=== PATIENT | female | born 1970 | race Hispanic/Latino ===

== ENCOUNTER 2016-08-19 08:42 | Emergency (ER) | payer OTHER ==
[~2016-08-19] VITALS: Ht 160 cm; Wt 113.4 kg
[2016-08-19 08:46] VITALS: BP 113/80
--- NOTE | 2016-08-19 08:55 | ED NECK/BACK PAIN COMPLAINT ---
History of Present Illness General Chief Complaint: Low Back Pain/Injury Stated Complaint: LBP Source: patient Exam Limitations: no limitations Allergies Coded Allergies: Penicillins (HIVES 08/19/16) Triage Note: PT TO ED C/O LOW BACK PAIN SINCE FRIDAY. PT STATES SHE SLIPPED ON ICE AND MAYBE TWISTED LOW BACK. DENIES FALLING. TOOK MOTRIN AND A MUSCLE RELAXER WITH NO RELIEF. Triage Nurses Notes Reviewed? yes HPI: This patient is a 46-year-old female who presented to the emergency department today for evaluation of left lower back pain. The patient reported that on Friday she slipped on some ice and twisted her back. She denied falling, head strike, or hitting her back on the ground. She reported that she took Advil, Tylenol, and a friend's meloxicam without any relief of her symptoms. She reported that she did feel," some pain," on Friday, but the pain increased yesterday and today. The pain gets up to a 10 out of 10 is located primarily in her left lower back, left of midline. She reported that occasionally when she is walking her left leg feels like is going to give out underneath her and the pain shoots down her leg. The patient reported the pain has been constant since onset and worsening ambulation and certain movements. No numbness or tingling in the extremities. No bowel or bladder incontinence. No saddle paresthesia. The patient denied any abdominal pain, groin pain, urinary urgency, frequency, blood in the urine, or burning with urination, nausea, vomiting, fevers, or chills. (ARY THEODORE,ABISAI) Vital Signs & Intake/Output Vital Signs & Intake/Output ED Intake and Output 08/20 0000 08/19 1200 Intake Total 50 Output Total Balance 50 Intake, Oral 50 Patient 250 lb Weight Reconcile Medications Ciprofloxacin HCl (Cipro) 500 MG TABLET 1 TAB PO BID UTI/PYELONEPHRITIS Cyclobenzaprine HCl 5 MG TABLET 1 TAB PO TIDPRN PRN MUSCLE SPASMS Naproxen (Naprosyn) 500 MG TABLET 1 TAB PO BID PRN PAIN AND INFLAMMATION Tramadol HCl 50 MG TABLET 1 TAB PO BIDP PRN PAIN (JEIMY VALENZUELA DO) Past History Travel History Traveled to [place] past 21 day No Medical History Any Pertinent Medical History? see below for history Surgical History Surgical History: non-contributory Psychosocial History What is your primary language Latvian Tobacco Use: Quit >30 days ago ETOH Use: denies use Illicit Drug Use: denies illicit drug use Family History Hx Contributory? No (ABISAI MCALLISTER PA-C) Review of Systems Review of Systems Constitutional: Reports: no symptoms. Eyes: Reports: no symptoms. Ears, Nose, Throat, Mouth: Reports: no symptoms. Respiratory: Reports: no symptoms. Cardiovascular: Reports: no symptoms. Gastrointestinal/Abdominal: Reports: no symptoms. Musculoskeletal: Reports: see HPI. Skin: Reports: no symptoms. Neurological/Psychological: Reports: no symptoms. All Other Systems: Reviewed and Negative (ABISAI MCALLISTER PA-C) Physical Exam Physical Exam Neck: normal inspection, supple, full range of motion, normal alignment Comments: Well-developed well-nourished person in no acute distress HEENT: Normal EENT exam, head normocephalic Back: Normal inspection. Antalgic gait. No CVA tenderness. Left-sided lumbar paraspinal musculature tenderness to palpation with muscular spasm noted. Positive straight-leg raise on the left at 45. No midline tenderness Respiratory: No respiratory distress. Speaking in full sentences Abdomen: Soft, nontender and nondistended Extremity: Normal and equal pulses. Neuro: Alert oriented x3, cranial nerves II through XII grossly intact. 5 out of 5 muscular strength in bilateral lower extremities. Skin: No appreciable rash on exposed skin, skin is warm and dry. Psych: Mood and affect is normal (ABISAI MCALLISTER PA-C) Progress Differential Diagnosis: cauda equina syn, herniated disc, myofascial strain, pyelo/UTI, sciatica, spinal cord inj, thoracic outlet syn, T/L spine injury, ureterolithiasis Plan of Care: Orders Procedure Date/time Status URINALYSIS 08/19 915 Complete URINE 08/19 909 Complete Laboratory Tests 08/19/16924: Urine Test NEGATIVE 08/19/16924: Urinalysis LIGHT H, Urine Color YEL, Urine Clarity HAZY H, Urine pH 6.0, Ur Specific Maiden >= 1.030, Urine Protein NEG, Urine Ketones NEG, Urine Nitrite NEG, Urine Bilirubin NEG, Urine Urobilinogen 0.2, Ur Leukocyte Esterase MOD H, Ur Microscopic SEDIMENT EXAMINED, Urine RBC 1-3, Urine WBC 50-75 H, Ur Epithelial Cells MANY H, Urine Mucus MOD H, Urine Hemoglobin SMALL H, Urine Glucose NEG Diagnostic Imaging: Viewed by Me: CT Scan. Discussed w/RAD: CT Scan. Radiology Impression: PATIENT: BRYSON ROBERTS PRESENT AGE: 46 PATIENT ACCOUNT NO: [id number] : 68 LOCATION: [facility] ORDERING PHYSICIAN: ABISAI MCALLISTER PA-C SERVICE DATE: 08/19/16 EXAM TYPE: CAT - CT LUMB SPINE WO IV CONTRAST EXAMINATION: CT LUMBAR SPINE WITHOUT CONTRAST CLINICAL INFORMATION: Pain. Assess for disc bulge. COMPARISON: None. TECHNIQUE: Helical non-contrast CT images were obtained through the lumbar spine and 1.25 and 2.5 mm axial reconstructions were reviewed along with sagittal and coronal MPRs. DLP: 1248.83 mGy-cm FINDINGS: There is hyperlordosis in the lumbar region. On the fire boat engineer image there is loss of vertebral body height anteriorly of T11 and T12 with anterior sclerosis and osteophytosis, consistent with chronic changes. There is mild narrowing of intervertebral disc height at L1-L2. Vertebral body heights are maintained and there are no compression fractures in the lumbar region. Bone mineralization appears normal. The retroperitoneal and visualized pelvic structures are unremarkable. There are mild degenerative changes of the bilateral sacroiliac joints. SPINAL LEVELS: T12-L1: The disc configuration is normal. The central canal and neural foramina are widely patent. The facet joints are normal. L1-L2: The disc configuration is normal. The central canal and neural foramina are widely patent. The facet joints are normal. L2-L3: The disc configuration is normal. The central canal and neural foramina are widely patent. The facet joints are normal. L3-L4: The disc configuration is normal. The central canal and neural foramina are widely patent. The facet joints are normal. L4-L5: There is moderate left and mild right facet arthropathy. There is a diffuse disc bulge extending into the inferior neural foramina bilaterally without definite foraminal nerve root impingement. There is no central stenosis. L5-S1: There is a left-sided paracentral disc protrusion, with mild impingement on the traversing left S1 nerve root. There is no significant central stenosis. The facet joints appear normal. The neural foramina are patent. IMPRESSION: 1. There are no acute fractures or subluxations. 2. There is hyperlordosis in the lumbar region which is nonspecific. 3. There appear to be chronic posttraumatic changes at T11-T12. 4. There is a left paracentral disc protrusion at L5-S1. There appears to be impingement on the traversing left S1 nerve root. DICTATED BY: KAYLEIGH RAYMUNDO MD DATE/TIME DICTATED:08/19/161008 RUSH SEATER:ANABEL DATE/TIME TRANSCRIBED:08/19/161008 CONFIDENTIAL, DO NOT COPY WITHOUT APPROPRIATE AUTHORIZATION. <Electronically signed in Other Vendor System> SIGNED BY: KAYLEIGH RAYMUNDO MD 08/19/16 1037 (ABISAI MCALLISTER PA-C) Departure Departure Disposition: HOME OR SELF CARE Condition: Stable Clinical Impression Primary Impression: Urinary tract infection Qualifiers: Urinary tract infection type: site unspecified Hematuria presence: without hematuria Qualified Code: N39.0 - Urinary tract infection, site not specified Secondary Impressions: Bulging disc Referrals: CATHERINE JACKSON,DAVY De La Vega Additional Instructions: Please take antibiotic as prescribed and forceful duration; please take this medication with food. Take Flexeril as prescribed for muscle relaxation. Take naproxen as prescribed for inflammation. Please take tramadol as prescribed for breakthrough pain. Call the orthopedic physician whose information has been provided to you in this packet for further evaluation as you may need an MRI of your lower back. Rest. Gentle stretching. You may apply ice or heat the affected area as needed. Please return to the emergency Department for any worsening symptoms or concerns. Departure Forms: Customer Survey General Discharge Information Prescriptions: Current Visit Scripts Ciprofloxacin HCl (Cipro) 1 TAB PO BID #14 TAB Cyclobenzaprine HCl 1 TAB PO TIDPRN PRN MUSCLE SPASMS #12 TAB Naproxen (Naprosyn) 1 TAB PO BID PRN PAIN AND INFLAMMATION #20 TAB Tramadol HCl 1 TAB PO BIDP PRN PAIN #10 TAB (ABISAI MCALLISTER PA-C) PA/MACHINE PRECISION ENGRAVER Co-Sign Statement Statement: ED Attending supervision documentation- [] I saw and evaluated the patient. I have also reviewed all the pertinent lab results and diagnostic results. I agree with the findings and the plan of care as documented in the PA's/MACHINE PRECISION ENGRAVER's documentation. [x] I have reviewed the ED Record and agree with the PA's/MACHINE PRECISION ENGRAVER's documentation. [] Additions or exceptions (if any) to the PAs/MACHINE PRECISION ENGRAVER's note and plan are summarized below: [] (JEIMY VALENZUELA DO)
--- NOTE | 2016-08-19 10:37 | CT SCAN REPORT ---
EXAMINATION: CT LUMBAR SPINE WITHOUT CONTRAST CLINICAL INFORMATION: Pain. Assess for disc bulge. COMPARISON: None. TECHNIQUE: Helical non-contrast CT images were obtained through the lumbar spine and 1.25 and 2.5 mm axial reconstructions were reviewed along with sagittal and coronal MPRs. DLP: 1248.83 mGy-cm FINDINGS: There is hyperlordosis in the lumbar region. On the utilization review specialist image there is loss of vertebral body height anteriorly of T11 and T12 with anterior sclerosis and osteophytosis, consistent with chronic changes. There is mild narrowing of intervertebral disc height at L1-L2. Vertebral body heights are maintained and there are no compression fractures in the lumbar region. Bone mineralization appears normal. The retroperitoneal and visualized pelvic structures are unremarkable. There are mild degenerative changes of the bilateral sacroiliac joints. SPINAL LEVELS: T12-L1: The disc configuration is normal. The central canal and neural foramina are widely patent. The facet joints are normal. L1-L2: The disc configuration is normal. The central canal and neural foramina are widely patent. The facet joints are normal. L2-L3: The disc configuration is normal. The central canal and neural foramina are widely patent. The facet joints are normal. L3-L4: The disc configuration is normal. The central canal and neural foramina are widely patent. The facet joints are normal. L4-L5: There is moderate left and mild right facet arthropathy. There is a diffuse disc bulge extending into the inferior neural foramina bilaterally without definite foraminal nerve root impingement. There is no central stenosis. L5-S1: There is a left-sided paracentral disc protrusion, with mild impingement on the traversing left S1 nerve root. There is no significant central stenosis. The facet joints appear normal. The neural foramina are patent. IMPRESSION: 1. There are no acute fractures or subluxations. 2. There is hyperlordosis in the lumbar region which is nonspecific. 3. There appear to be chronic posttraumatic changes at T11-T12. 4. There is a left paracentral disc protrusion at L5-S1. There appears to be impingement on the traversing left S1 nerve root.
[2016-08-19] MEDS ORDERED: CYCLOBENZAPRINE5 M2 PO (10:47)
[2016-08-19] MEDS ORDERED: NAPROSYN500 M1 PO (10:47)
[2016-08-19] MEDS ORDERED: TRAMADOL HCL50 M1 PO (10:47)
[2016-08-19] MEDS ORDERED: CIPRO500 M1 PO (10:47)
== END 2016-08-19 11:27 ==
LOC: ERH
DX: N39.0 Urinary tract infection, site not specified (principal); M51.27 Other intervertebral disc displacement, lumbosacral region
CPT/HCPCS: 81001; 81025

== ENCOUNTER 2017-08-07 04:18 | Inpatient (IN) | payer OTHER ==
[~2017-08-07] VITALS: Ht 157.5 cm; Wt 121.1 kg
[~2017-08-07 04:18] MED LIST: CIPRO500 M1 PO; CYCLOBENZAPRINE5 M2 PO; NAPROSYN500 M1 PO; TRAMADOL HCL50 M1 PO
--- NOTE | 2017-08-07 09:18 | Operative Report ---
Operative/Inv Procedure Report Surgery Date: 08/07/17 Name of Procedure: Laparoscopic Sleeve Gastrectomy Pre-Operative Diagnosis: Morbid obesity Post-Operative Diagnosis: same Estimated Blood Loss: scant Surgeon/Resaw Tailer: Miquel JACKSON,King Brown PA-C Anesthesia: general endotracheal tube Implants: none Urine Output: na Drains: none Specimens: portion of stomach Complications: none Condition: stable
--- NOTE | 2017-08-07 12:05 | Admission Core Measures ---
Acute Coronary Syndrome (CM) ACS Core Measures Acute Coronary Syndrome Diagnosis No Congestive Heart Failure (NEW) CHF Core Measures Congestive Heart Failure Diagnosis No Cerebrovascular Accident (NEW) CVA Core Measures CVA/TIA Diagnosis No Venous Thromboembolism VTE Core Bienvenido (View Protocol) VTE Risk Factors Surgery No Mechanical VTE Prophylaxis d/t N/A MechProphylax Ordered No VTE Pharm Prophylaxis d/t NA PharmProphylax ordered Problem List As ranked by this Provider includes Assessment & Plan 1. Morbid obesity 2. S/P laparoscopic sleeve gastrectomy HOME MEDS Home Med List No Known Home Medications
[2017-08-07 13:00] VITALS: BP 108/62
--- NOTE | 2017-08-07 14:08 | PN- Bariatrics ---
Subjective Subjective: POSTOP CHECK Patient reports nausea in the PACU, which resolved with Zofran. She is thirsty an is requesting ice chips. She reports back pain. Denies voiding or passing flatus. Denies ambulating postop. Objective Vital Signs and I&Os Vitals - afebrile, VSS Physical Exam: Gen - resting uncomfortably in bed due to positioning, awake an alert in NAD Cardiac - S1S2 noted, RRR Lungs - CTAB Abd - soft, obese with 5 dressing c/d/i, hypoactive bs, appropriately tender liz-incisionally, no rebound or guarding noted. Ext - alps in place, no edema or calf tenderness Current Medications: Current Medications Sig/Pretty Start time Last Medication Dose Route Stop Time Status Admin Acetaminophen 1,000 MG Q6 08/07 1200 AC 08/07 N/A 1 UNIT IV 08/08 0614 1315 Clindamycin 600 MG IQ8 08/07 1600 AC Dextrose/Water 50 ML IV 08/08 0029 Clindamycin 600 MG ONCE 08/07 0000 DC Dextrose/Water 50 ML IV 08/07 2359 Dexamethasone 0 .STK-MED ONE 08/07 0645 DC .ROUTE Dexamethasone 10 MG ONCE 08/07 0000 DC IV 08/07 2359 Heparin Sodium 5,000 UNIT Q8 08/07 1400 AC 08/07 (Porcine) SC 1315 Heparin Sodium 0 .STK-MED ONE 08/07 0650 DC (Porcine) .ROUTE Heparin Sodium 5,000 UNIT ONCE 08/07 0000 DC (Porcine) IV 08/07 2359 Hydrocodone Bitart/ 15 ML Q6P PRN 08/07 1315 AC Acetaminophen PO Hydromorphone HCl 1 MG Q4P PRN 08/07 1315 AC IV Ketorolac 15 MG Q6 PRN 08/07 1015 AC Tromethamine IV Lactated Ringer's 1,000 ML ONCE ONE 08/07 1315 AC 02/08 IV 08/07 2314 1315 Ondansetron HCl 4 MG Q6P PRN 08/07 1315 AC IV Scopolamine HBr 0 .STK-MED ONE 08/07 0711 DC TOP Simethicone 40 MG Q6P PRN 08/07 1315 AC PO Results Last 48 Hours of Labs: Laboratory Tests 08/07 0730 Urines Urine Test NEGATIVE Assessment/Plan Assessment/Plan 47 F with a PMHX of GERD, OA and migrains who is POD 0 s/p lap sleeve gastrectomy with nausea, which resolved Advance to stage 1 Cont IVF LR @ 100/h NPO after midnight UGI series in am Postop abx - Clinda x2 Analgesics/antiemetics prn GI/DVT ppx on board Encourage oob/ambulation Core Measures Venous Thromboembolism VTE Risk Factors Surgery No Mechanical VTE Prophylaxis d/t N/A MechProphylax Ordered No VTE Pharm Prophylaxis d/t NA PharmProphylax ordered
--- NOTE | 2017-08-07 14:12 | Surg Short-stay <48hrs Dis Sum ---
Visit Information Visit Dates Admission Date: 08/07/17 Discharge Date: 08/08/17 Surgical Short Stay DC Summary Admission Diagnosis: Morbid obesity Final Diagnosis: same, s/p laparoscopic sleeve gastrectomy Procedure(s): Laparoscopic sleeve gastrectomy (08/07/17) Summary/Significant Findings: Patient was admitted for elective laparoscopic sleeve gastrectomy for morbid obesity. Procedure tolerated well without complications. Patient tolerated stage 1 bariatric diet. Pain is well controlled with oral pain meds and she is ambulating without difficulty. Patient medically stable for discharge. Condition at Discharge: Stable Discharge Disposition: home or self care Discharge instructions provided to patient/family: Yes Post discharge follow-up plan: Follow up in 2 weeks for a postop check, call to confirm appointment Copies to: Marlon JACKSON PHD,Antonino Ho
--- NOTE | 2017-08-07 14:14 | Patient Discharge Instructions ---
Discharge Instructions General Discharge Information You were seen/treated for: Morbid obesity You had these procedures: Laparoscopic sleeve gastrectomy Watch for these problems: Fever > 101F, worsening pain despite medications, intractable nausea/vomiting, inability to tolerate food or drink, inability to pass flatus or bowel movement, redness, swelling and/or drainage from incisions Other wound care: Do not soak wounds. You may shower 48hr after surgery. Leave steristrips in place- adhesive will dissolve over time. Diet Recommended Diet: Bariatric (Stage 1) Activity Activity Self Limited: Yes Pounds, do NOT lift more than: 10 (x 4 weeks) Acute Coronary Syndrome Inclusion Criteria At DC or during hospital stay patient has or had the following: ACS DIAGNOSIS No Discharge Core Measures Meds if any: Prescribed or Continued at Discharge Meds if any: NOT Prescribed or Continued at Discharge Congestive Heart Failure Inclusion Criteria At DC or during hospital stay patient has or had the following: CHF DIAGNOSIS No Discharge Core Measures Meds if any: Prescribed or Continued at Discharge Meds if any: NOT Prescribed or Continued at Discharge Cerebrovascular accident Inclusion Criteria At DC or during hospital stay patient has or had the following: CVA/TIA Diagnosis No Discharge Core Measures Meds if any: Prescribed or Continued at Discharge Meds if any: NOT Prescribed or Continued at Discharge Venous thromboembolism Inclusion Criteria VTE Diagnosis No VTE Type NONE VTE Confirmed by (Test) NONE Discharge Core Measures - Per Current guidelines, there needs to be overlap - treatment for the first 5 days of Warfarin therapy. - If discharged on Warfarin prior to 5 days of - overlap therapy, the patient will need to be - assessed for post discharge needs including - *Post discharge parental anticoagulation - *Warfarin and/or parental anticoagulation education - *Follow up date to check INR post discharge At least 5 days overlap therapy as Inpatient No Meds if any: Prescribed or Continued at Discharge Note: Overlap Therapy is Warfarin and Anticoagulant Meds if any: NOT Prescribed or Continued at Discharge
[2017-08-07 22:37] VITALS: BP 105/57
[2017-08-08 05:44] VITALS: BP 100/62
--- NOTE | 2017-08-08 08:31 | PN- Bariatrics ---
Subjective Subjective: Reports feeling much better this morning compared to yesterday. "I always feel badly after anesthesia". Currently npo and without nausea. Ambulated yesterday without difficulty. No shortness of breath. No chest pains. Voiding well. Eager to try drinking stage 1 again. Objective Vital Signs and I&Os Vital Signs Date Time Temp Pulse Resp B/P B/P Pulse O2 O2 Flow FiO2 Mean Ox Delivery Rate 08/08 0544 98.1 58 20 100/62 95 Room Air 08/07 2237 98.2 78 18 105/57 98 Room Air 08/07 1300 97.4 88 18 108/62 96 Room Air Room Air Intake & Output 08/08 1600 08/08 0800 08/08 0000 08/07 1600 08/07 0800 08/07 0000 Intake Total 225 1050 260 Output Total 400 600 400 Balance -175 450 -140 Intake, IV 225 900 200 Intake, Oral 150 60 Number 0 Bowel Movements Output, Urine 400 600 400 Patient 267 lb Weight Physical Exam: General - alert & oriented x 3. comfortable. no acute distress. Lungs - clear bilaterally. no w/r/r. Cardiac - s1s2. reg. Abdomen - soft. dressings c/d/i. no drains. expected liz-incisional tenderness. Extremities - warm bilaterally. no c/c/e. calves soft and nontender b/l. Current Medications: Current Medications Sig/Pretty Start time Last Medication Dose Route Stop Time Status Admin Acetaminophen 1,000 MG Q6 08/07 1200 DC 08/08 N/A 1 UNIT IV 08/08 0614 0642 Clindamycin 600 MG IQ8 08/07 1600 DC 08/08 Dextrose/Water 50 ML IV 08/08 0029 0034 Clindamycin 600 MG ONCE 08/07 0000 DC Dextrose/Water 50 ML IV 08/07 2359 Dexamethasone 10 MG ONCE 08/07 0000 DC IV 08/07 2359 Heparin Sodium 5,000 UNIT Q8 08/07 1400 AC 08/08 (Porcine) SC 0645 Heparin Sodium 5,000 UNIT ONCE 08/07 0000 DC (Porcine) IV 08/07 2359 Hydrocodone Bitart/ 15 ML Q6P PRN 08/07 1315 AC Acetaminophen PO Hydromorphone HCl 1 MG Q4P PRN 08/07 1315 AC IV Ketorolac 30 MG .STK-MED ONE 08/07 1636 DC Tromethamine IM 08/07 1637 Ketorolac 15 MG Q6 PRN 08/07 1015 AC 08/07 Tromethamine IV 1646 Lactated Ringer's 1,000 ML ONCE ONE 08/07 1315 DC 08/07 IV 08/07 2314 1315 Ondansetron HCl 4 MG Q6P PRN 08/07 1315 AC IV Simethicone 40 MG Q6P PRN 08/07 1315 AC PO Results Last 48 Hours of Labs: Laboratory Tests 08/08 08/07 0809 0730 Chemistry Sodium Pending Potassium Pending Chloride Pending Carbon Dioxide Pending Anion Gap Pending Hematology CBC w Diff Pending WBC Pending RBC Pending Hgb Pending Hct Pending MCV Pending MCH Pending MCHC Pending RDW Pending Plt Count Pending MPV Pending Urines Urine Test NEGATIVE Assessment/Plan Assessment/Plan This 47 year old female with pmh gerd, migraines, morbid obestiy, is POD#1 s/p lap sleeve gastrectomy, post-op nausea has resolved upper gi study cancelled after speaking with resume stage 1 diet oob/ambulation encouraged hep sc - dvt ppx protonix - gi ppx possible d/c home later if tolerating stage 1 diet she understands & agrees with plan d/w Core Measures Venous Thromboembolism VTE Risk Factors Surgery No Mechanical VTE Prophylaxis d/t N/A MechProphylax Ordered No VTE Pharm Prophylaxis d/t NA PharmProphylax ordered
[2017-08-08] MEDS ORDERED: PROTONIX40 M3 PO (08:34)
[2017-08-08] MEDS ORDERED: HYCET 7.5 MG-3473 ML PO (08:34)
[2017-08-08 09:25] LABS: ABSOLUTE BASOPHIL COUNT 0 /CUMM (0.0-0.2); ABSOLUTE EOSINOPHIL COUNT 0 /CUMM (0.0-0.7); ABSOLUTE GRANULOCYTE CT 10.4 /CUMM (1.4-6.5); ABSOLUTE LYMPH COUNT 1.2 /CUMM (1.2-3.4); ABSOLUTE MONOCYTE COUNT 0.6 /CUMM (0.10-0.60); BASOPHIL % 0 % (0.0-2.0); EOSINOPHIL % 0 % (0-5); GRANULOCYTE % 85.1 % (42.2-75.2); HEMATOCRIT 39.6 % (37-47); MEAN CORPUSCULAR HGB 28.8 PG (27.0-31.0); MEAN CORPUSCULAR HGB CONC 32.7 G/DL (33.0-37.0); MEAN CORPUSCULAR VOLUME 88.3 FL (81.0-99.0); MEAN PLATELET VOLUME 8.8 FL (7.4-10.4); PLATELET COUNT 241 /CUMM (130-400); RBC DISTRIBUTION WIDTH 13.3 % (11.5-14.5); RED BLOOD CELL CT 4.48 /CUMM (4.20-5.40); WHITE BLOOD CELL COUNT 12.3 /CUMM (4.8-10.8)
== END 2017-08-08 12:30 | DRG 621 ==
LOC: 2NB 04:18 → SDA 04:18 → ENRESERV 12:16 → ENTRNSPT 12:40 → EDTRNSPTSTS 12:48 → EDTRNSPT 12:48 → 2NB 13:07 → CMPTRNSPT 13:10 → ENPENDDIS 08-08 08:53 → 2NB 08-08 12:30
PROVIDERS: Physician Assistant Surgical
PROC: 0DB64Z3 Excision of Stomach, Percutaneous Endoscopic Approach, Vertical (ICD-10-PCS; principal; 2017-08-07)
DX: E66.01 Morbid (severe) obesity due to excess calories (principal); G43.909 Migraine, unspecified, not intractable, without status migrainosus; Z68.42 Body mass index [BMI] 45.0-49.9, adult; K21.9 Gastro-esophageal reflux disease without esophagitis; M19.90 Unspecified osteoarthritis, unspecified site; Z87.891 Personal history of nicotine dependence; R11.0 Nausea
CPT/HCPCS: 2NBSP; 36415; 81025; C9399; J0131; J1100; J1644; J1885; J2405; J7120